=== PATIENT | female | born 1995 | race Caucasian/White ===

== ENCOUNTER 2020-06-30 11:47 | Emergency (ER) | payer OTHER ==
[2020-06-30] MEDS ORDERED: FAMOTIDINE 10 MG TABLET PO ONE (12:16)
[2020-06-30] MEDS ORDERED: DEXAMETHASONE SOD PHOSPHATE 10 MG/1 ML VIAL IM ONE (12:16)
[2020-06-30 12:17] VITALS: BP 124/86; PULSE 76; TEMP 98; BMI 24.5
[2020-06-30] MEDS ORDERED: DEXAMETHASONE SOD PHOSPHATE 10 MG/1 ML VIAL ONE (12:29)
[2020-06-30] MEDS ORDERED: FAMOTIDINE 20 MG TABLET ONE (12:29)
== END 2020-06-30 13:40 | disposition home or self-care (01) ==
LOC: FER 11:47
PROC: 3E0233Z Introduction of Anti-inflammatory into Muscle, Percutaneous Approach (ICD-10-PCS; principal; 2020-06-30)
DX: T78.40XA Allergy, unspecified, initial encounter (principal)
CPT/HCPCS: 99284-25; J1100